=== PATIENT | female | born 1935 | race Caucasian/White ===

== ENCOUNTER → 2016-08-15 | Outpatient (CLI) | payer OTHER ==
[~2016-08-15] VITALS: Ht 152.4 cm; Wt 77.1 kg
[~2016-08-15] MED LIST: ADULT LOW DOSE81 MG PO; ADVAIR 100-501 EACH IH; ADVAIR HFA 230M12 GM INH; ADVAIR HFA115 MCG/21 INH; ADVAIRDISKUS; AMLODIPINE BESYL5 MG PO; ASPIRIN325 PO; ASTELIN30 ML; ASTELIN30 ML NS; ASTEPRO205.5 MCG/ INH; AVAPRO 150 MG150 M1 PO; AVAPRO 150 MG150 MG PO; B-121000 MCG PO; BENICAR PO; BENICAR20 MG; BENICAR20 MG PO; CALCIUM; CALCIUM +D & M1 EAC1 PO; CALCIUM 500 +1 EAC5 PO; CALCIUM CITRAT1 EA14 PO; CARAFATE 1 GM TA1 G1 PO; CITRATE OF MAG296 ML PO; CO-ENZYME Q-1010 MG PO; CONJUGATED ESTROGENS; DYMISTA NASAL S23 GM; FISH OIL 1,0001 EAC5 PO; FISH OIL 1,001000 M2 PO; FISH OIL SOFTG1 EACH PO; FISHOIL PO; IBUPROFEN 400400 M2 PO; INDAPAMIDE1.25 MG PO; INDAPAMIDE2.5 MG PO; K-DUR 20 MEQ T20 MEQ PO; K-DUR10 ME1 PO; KLOR-CON 1010 MEQ PO; LEVAQUIN 500 M500 M2 PO; LIDODERM 5%1 PATC1 TRANSDERM; LOPRESSOR 12.12.5 MG PO; LOPRESSOR PO; MICRO-K 10 MEQ10 MEQ OR; MULTIPLE VITAM1 EAC3 PO; MULTIVITAMINS; MULTIVITAMINS1 EAC7 PO; NASACORT10.8 ML INH; NASACORT10.8 ML NS; NASONEX17 GM; NASONEX17 GM NS; NEXIUM 40 MG CA40 M1 PO; NEXIUM PO; NEXIUM20 M1 PO; NEXIUM40 MG PO; NORCO 5-325 TA1 EACH PO; OXYBUTYNIN 5 MG5 M1 PO; PHENERGAN 25 MG25 M1 PO; PLAVIX 75 MG TA75 M1 PO; PREMARIN0.625 MG VAG; PREMARIN42.5 GM VG; PRILOSEC 20 MG20 MG PO; PROAIR HFA8.5 GM INH; PROLIA60 MG/1 ML SQ; PROMETHEGAN25 MG RC; PROTONIX40 M1 PO; REGLAN 5 MG TAB5 M1 PO; SERTRALINE HCL25 M1; SERTRALINE HCL25 M1 PO; SIMVASTATIN20 MG PO; SINGULAIR 10 MG10 M1 PO; TOPROL XL25 MG PO; VITAMIN B-12100 MC1 PO; VITAMIN B-121000 MCG PO; VITAMIN B12 5500 MC1 PO; VITAMIN D1000 UNI1 PO; WELLBUTRIN SR150 MG PO; XANAX 0.25 MG0.25 MG PO; ZOCOR 20 MG TAB20 M1; ZOCOR20 MG PO; ZOFRAN ODT4 MG PO; ZOFRAN4 MG PO; [UNRECOGNIZED DRUG - OTHER]
--- NOTE | ~2016-08-15 | P ---
[facility] [place] [address] PROCEDURE REPORT Name: REJI MARVIN DHAVAL Room #: REG Patrick Varela.#: [id number] Admission: 08/15/16 Attend Phys: Zeke Wade MD Discharge: Date of : 34 Report #: [id number] THIS REPORT FOR: //name// CC: Zeke Clay MD DATE OF SERVICE: 08/15/2016 BRIEF HISTORY: The patient is an 81-year-old woman who was admitted to [facility] recently with diarrhea. A CT revealed a colitis involving the sigmoid colon. She was treated with several course of antibiotics as an outpatient and continued to have diarrhea. She was seen in the office and plans were made for flexible sigmoidoscopy and biopsy due to CT findings and her symptoms. We discussed the role of colonoscopy. It has been a number of year since she had a colonoscopy; however, she felt she could not tolerate the prep; therefore, we agreed on a flexible sigmoidoscopy. PREOPERATIVE DIAGNOSIS: Diarrhea with abnormal sigmoid colon on CT, colitis. POSTOPERATIVE DIAGNOSES: 1. Diverticulosis coli. 2. Normal colonic mucosa with limitations of prep. MEDICATIONS: Deep sedation with propofol per anesthesia. SPECIMEN: Biopsies of sigmoid colon. ESTIMATED BLOOD LOSS: 3 mL. PROCEDURE: Flexible sigmoidoscopy with biopsy. FINDINGS: Prior to propofol sedation, procedure of flexible sigmoidoscopy was discussed with the patient as well as potential risks and its complications. She indicates she understands and desires to proceed. DESCRIPTION OF PROCEDURE: With the patient in left lateral decubitus position, digital examination was completed which revealed no abnormalities. Subsequently, the [employer] video colonoscope was introduced in the rectum, advanced under direct vision. The prep was limited. There was some solid material. We were able to work the scope around and advanced the scope to the distal descending colon at about 50 cm. At that point, the scope was slowly withdrawn and careful circumferential views were obtained. Again, the prep was limited; however, we were able to obtain some views of the mucosa which was normal. There was no evidence of colitis or ulceration. Moderate diverticular disease was seen. Multiple random biopsies were obtained. The scope was withdrawn and [facility] [address] [place] [address] PROCEDURE REPORT Name: SHAVONNEREJI ANN [facility] [id number] Admission: 08/15/16 Attend Phys: Zeke Wade MD Discharge: Date of : 34 Report #: [id number] again, there were limitations of the rectum, but the rectal mucosa could be seen was normal. Scope was withdrawn. The patient tolerated the procedure well. CONDITION OF THE PATIENT UPON DISCHARGE: Following the procedure, the patient drowsy. She will be discharged home when fully ambulatory. INSTRUCTIONS TO THE PATIENT AND FAMILY AT TIME OF DISCHARGE: We will follow up on biopsies obtained today. At this point, would treat her symptomatically. Interestingly, she had solid stools today. It is not clear why her symptoms persisted to such a degree. Again, we will follow up on biopsies and make further recommendations. She was seen on an as needed basis. <ELECTRONICALLY SIGNED> By: Zeke Wade MD 08/16/16 1615 1209 [id number] Zeke Wade MD /nt
--- NOTE | ~2016-08-15 | S ---
[facility] [place] [address] SURGICAL PATH RPT PROCEDURE Name: REJI MARVIN Room #: REG FAYE M.Valeria.#: [id number] Admission: 08/15/16 Date of : 34 Discharge: Report #: [id number] Path Case #: [id number] PATHOLOGY REPORT COLLECTION DATE: 08/15/2016 RECEIVED DATE: 08/15/2016 SUBMITTING PHYS: Dr. Zeke Wade OTHER PHYS: Dr. Minh Clay SPECIMEN(S) RECEIVED: A.Sigmoid colon * * * * * * * * * * * * FINAL DIAGNOSIS: Large intestine, sigmoid colon, endoscopic biopsy: - Non-specific changes (please see comment). - Negative for dysplasia or malignancy. COMMENT: Examination shows subtle fibrosis of the lamina propria with mild crypt architectural distortion. Active colitis, surface epithelial inflammation, crypt abscess formation, granulomata, or viral inclusions are not identified. There is no evidence of basal plasmacytosis present. Overall, findings are non-specific and may be suggestive of a resolved episode of colitis, or diverticulitis. Clinical correlation is suggested. (IUV:mgr; d/t: 08/16/16) PATHOLOGIST: Hilda Alexandra M.D. REPORT ELECTRONICALLY SIGNED BY: Hilda Alexandra M.D. DATE/TIME: 08/16/2016 16:21 * * * * * * * * * * * * GROSS PATHOLOGY: Received in formalin labeled "Reji Marvin and sigmoid colon," are 5 segments of dobson soft tissue measuring 1.8 x 0.3 x 0.2 cm in aggregate dimensions and ranging from 0.2 to 0.4 cm in maximum dimension. The specimen is submitted entirely in cassette A1. (TTL; 08/15/2016) CLINICAL HISTORY: Hx colitis, diarrhea INITIAL CPT CODE(S): A; [address] [facility] [place] [address] SURGICAL PATH RPT PROCEDURE Name: REJI MARVIN Room #: REG CLI Avery.#: [id number] Admission: 08/15/16 Date of : 34 Discharge: Report #: [id number] Path Case #: [id number] Professional services performed by [facility] at [address], [place] [address] Technical services performed by [facility] at [address] [place] [address], [facility] [address] [place] [address]. [facility] [address] [place] [address] PHONE: [phone] DIRECTOR: Ayden Hough M.D. * * * END OF REPORT * * *
== END | disposition home or self-care (01) ==
LOC: GI 09:08
DX: K57.30 Diverticulosis of large intestine without perforation or abscess without bleeding (principal); I10 Essential (primary) hypertension; J45.909 Unspecified asthma, uncomplicated; E78.00 Pure hypercholesterolemia, unspecified; K21.9 Gastro-esophageal reflux disease without esophagitis; F32.9 Major depressive disorder, single episode, unspecified; F41.9 Anxiety disorder, unspecified; Z98.42 Cataract extraction status, left eye; Z90.710 Acquired absence of both cervix and uterus; Z98.41 Cataract extraction status, right eye; Z96.1 Presence of intraocular lens; Z98.890 Other specified postprocedural states
CPT/HCPCS: 62110; 62900

== ENCOUNTER → 2021-01-25 | Outpatient (CLI) | payer OTHER ==
[~2021-01-25] MED LIST changes: +ASA81BEC PO; +ASPIR 8181 M1 PO; +CO Q-10200 MG PO; +ESTRADIOL CREAM VAG; +K-DUR10 MEQ PO; +MELATONIN5 M1 PO; +METAMUCIL POWD174 GM PO; +MULTI VITAMIN1 EACH PO; +PROBIOTIC1 EAC7 PO; +VIACTIV 650 MG1 EACH PO; +VITAMIN C1000 MG PO; +VITAMIN C250 MG PO; +VITAMIN D350 MC3 PO; +VITAMIN E400 UNIT PO; +ZELNORM6 MG PO
[2021-01-25 15:17] LABS: URINE BILIRUBIN NEGATIVE (Negative); URINE BLOOD NEGATIVE (Negative); URINE CLARITY CLEAR; URINE COLOR YELLOW; URINE GLUCOSE-RANDOM* NEGATIVE (Negative); URINE KETONES NEGATIVE (Negative); URINE LEUKOCYTES-REFLEX NEGATIVE (Negative); URINE NITRITE-REFLEX NEGATIVE (Negative); URINE PROTEIN (DIPSTICK) NEGATIVE (Negative); URINE UROBILINOGEN 0.2 E.U./dl (0.2-1.0)
[2021-01-25 15:19] LABS: HEMATOCRIT 36.1 % (37.0-47.0); MCH 31.8 pg (26.0-34.0); MCHC 33.2 g/dL (28.0-37.0); MCV 95.6 fL (80.0-100.0); RBC 3.77 mil/uL (4.20-5.00); RDW 12.7 % (10.5-14.5); WBC 6.9 thou/uL (4.0-11.0)
[2021-01-25 15:34] LABS: ALBUMIN 3.8 g/dL (3.4-5.0); CALCIUM 8.7 mg/dL (8.5-10.1); POTASSIUM 4.5 mmol/L (3.5-5.1)
[2021-01-25 15:35] LABS: INR 1.04; PROTIME 11.3 Seconds (10.5-12.1)
== END ==
LOC: PAC 11:10
PROVIDERS: ATTEND Orthopaedic Surgery Sports Medicine
DX: Z01.812 Encounter for preprocedural laboratory examination (principal); M17.12 Unilateral primary osteoarthritis, left knee; E11.9 Type 2 diabetes mellitus without complications

== ENCOUNTER → 2021-02-06 | Outpatient (CLI) | payer OTHER | LOC: LAB 11:40 | PROVIDERS: Student in an Organized Health Care Education/Training Program; ATTEND Orthopaedic Surgery Sports Medicine | DX: Z01.812 Encounter for preprocedural laboratory examination (principal); Z20.822 Contact with and (suspected) exposure to COVID-19 ==

== ENCOUNTER 2021-02-07 06:04 | Inpatient (IN) | payer OTHER ==
[~2021-02-07] VITALS: Ht 121.9 cm; Wt 50.5 kg
[2021-02-07 07:49] VITALS: BP 156/50
[2021-02-07 15:34] VITALS: BP 137/62
[2021-02-07 16:05] VITALS: BP 114/72
--- NOTE | 2021-02-07 16:15 | NUR ---
PATIENT ARRIVED TO FLOOR FROM OR AT 1450. A&OX4. DAUGHTER PRESENT. NO COMPLAINTS OF PAIN. PT AT BEDSIDE. VITAL SIGNS WITHIN NORMAL LIMITS. LEFT KNEE HAD POLAR PACK, SCDS, AND JOSE HOSE. FALL PRECAUTIONS PUT IN PLACE. PATIENT HAD EPISODE OF DIZZINESS WHEN WORKING WITH PT. BEDSIDE COMMODE USED INSTEAD OF WALKING TO RESTROOM. FOOT DROP WAS ALSO NOTICED ON PATIENTS LEFT FOOT. WILL CONTINUE TO MONITOR.
[2021-02-07 16:25] VITALS: BP 130/59
[2021-02-07 19:51] VITALS: BP 109/53
--- NOTE | 2021-02-08 02:50 | NUR ---
PT DENIED PAIN SO FAR.PT UP WITH ASSIST/GB TO BSC.PT STILL C/O DIZZINESS WHEN UP.POLAR PACK,SCD,JOSE HOSE IN PLACE.IVF INFUSING ORDERD.ALL PT NEEDS MET.PT SLEEPING ON HER BED AT THIS TIME.DRSG TO HER L KNEE C/D/I.CALL LIGHT WITHIN REACH.
[2021-02-08 04:27] VITALS: BP 134/49
--- NOTE | 2021-02-08 05:41 | O ---
[facility] [place] [address] OPERATIVE REPORT Name: REJI MARVIN Room #: 442-P ADM IN M.R.#: [id number] Admission: 02/07/21 Attend Phys: Jonh Dalal MD Discharge: Date of : 34 Report #: [id number] THIS REPORT FOR: cc: Minh Clay MD, Thomas P. MD McCabe,Jonh Holt MD ~ DATE OF SERVICE: 02/07/2021 SERVICE: Orthopedics. FACILITY: [facility]. SURGEON: Jonh Dalal MD [employer] TOP HELPER: Ana Lui NP. INDICATIONS FOR ELECTR[employer]IANS TOP HELPER: Extremities positioning, retraction, exposure, implant fixation and closure. PREOPERATIVE DIAGNOSIS: Severe left knee osteoarthritis, valgus type. POSTOPERATIVE DIAGNOSIS: Severe left knee osteoarthritis, valgus type. PROCEDURES PERFORMED: 1. Left total knee arthroplasty. 2. Robotic-assisted arthroplasty. COMPLICATIONS: None. DRAINS: None. SPECIMENS: None. ANESTHESIA: General with regional. IMPLANTS: Valentine and Nephew size 3 cobalt chrome Journey II femoral component, size 3 tibial component, 10 mm poly spacer and 29 mm patellar button. HISTORY: The patient is an 86-year-old female with a history of persistent quite severe and worsening left knee osteoarthritis, who had tried a couple years' worth of conservative treatment measures and she continued to have persistent pain despite all of these and she was interested in having definitive treatment. As a result, she had severe osteoarthritis on her x-rays with xbaj-[id number]-[id number] changes, sclerosis and osteophytes. We discussed openly that her age [age] years old was a concern for having potential complications postoperatively. I had a conversation with her primary care as well as her [facility] [address] [place] [address] OPERATIVE REPORT Name: REJI MARVIN DHAVAL Room #: 442-P ADM IN M.R.#: [id number] Admission: 02/07/21 Attend Phys: Jonh Dalal MD Discharge: Date of : 34 Report #: [id number] elder daughter on several occasions as to optimal ways to approach this in order to minimize risk of significant complication. Ultimately, she wished to move forward with definitive surgical treatment. Risks, benefits, alternatives and indications of surgery discussed with her in detail. Risks include but not limited to pain, bleeding, infection, injuring nerves or blood vessels, persistent pain despite surgical intervention, need for further surgery including revision as well as complications related to anesthesia up to and including . Despite these risks, she wished to proceed. DESCRIPTION OF PROCEDURE: After left lower extremity was correctly identified in the preoperative holding area as the operative extremity, the patient underwent regional nerve block. She was then taken to the operating room where general anesthesia was induced without complication. She was padded appropriately. Prophylactic antibiotics were administered in appropriate time. A tourniquet was applied to left leg. Left lower extremity was then prepped and draped in standard sterile fashion. Timeout procedure performed. Esmarch was used and tourniquet inflated to 250 mmHg. Standard anterior approach was performed with medial parapatellar arthrotomy and exposure was performed in standard fashion. Osteophytes were removed. The anterior horn of the medial and lateral menisci were resected. The cruciates were resected with electrocautery and synovitis was resected as well. The checkpoints and tibial and femoral half pins were then placed and the OTI [employer] robotic system was used to obtain baseline depth and then based on the templating, we established a surgical plan. The distal cut was made with the Navio bur and then the 5-in-1 cutting block was used to prepare the femur to appropriate size accounting for her smaller lateral femoral condyle and the wear pattern that was favoring the lateral side with the valgus deformity. The tibial cut was then made utilizing the Navio for assistance in the position and orientation and then the tibial side after we used the spacer blocks to confirm the balance medial and lateral flexion and extension gaps. The knee was placed into extension. Prior to placement of the trials, lamina medication administration professional was used and then first portion of the periarticular injection cocktail was injected into the posterior capsule for postoperative pain control and then the trials were placed, first with the tibia and then with the femoral component and then a box cut was made. Then we assessed the balancing with a 10 mm trial, I was happy with the appearance. We used the Navio then to assess the balancing and I was happy again with the balancing. We had achieved full extension and had approximately 2 mm of mobility, which I think is ideal for this patient in her situation. She has baseline general laxity and has excellent knee flexion again. The final implants were selected. The trials were removed. Final preparation of the bone was performed. The wound was copiously irrigated and then the final implants were cemented into place. Note that the patella then prepared for a 29 mm patellar inset button. Knee was placed into extension. Excess cement was removed. While the cement cured, the rest of the periarticular injection was injected into the soft tissues and then tourniquet was let down. Hemostasis was [facility] [address] [place] [address] OPERATIVE REPORT Name: REJI MARVIN Room #: 442-P ADM IN M.R.#: [id number] Admission: 02/07/21 Attend Phys: Jonh Dalal MD Discharge: Date of : 34 Report #: [id number] achieved. During the excision of the tibial component, there was noted be a small partial thickness tear in the popliteus and so an 0 Vicryl suture was used to repair this in a [id number] fashion with successful repair achieved. The balancing was appropriate with the trial in place and we selected the final 10 mm trial. The wound was irrigated once more and then the final trial was snapped into position. I was happy with the balancing in flexion and extension and she achieved full extension. The arthrotomy was then closed with 0 Vicryl suture in [id number] fashion and gravity flexion test was performed. The arthrotomy was closed over a gram of vancomycin powder. The skin was then closed with 2-0 Vicryl followed by running subcuticular 3-0 Monocryl. Dermabond and sterile dressing was applied followed by a thigh-high compression stocking and a PolarCare device. The patient was awakened from anesthesia and taken to recovery room in stable condition, no complications. All counts were recorded as correct. <ELECTRONICALLY SIGNED> By: Jonh Dalal MD 02/08/21 0541 0927 1010 Jonh Dalal MD /nt
[2021-02-08 09:00] VITALS: BP 136/80
--- NOTE | 2021-02-08 12:26 | NUR ---
A/O X 4. ROOM AIR. STAND BY ASSIST WITH WALKER. RIGHT HAND IV SALINE LOCKED. CONT OF B/B USES BEDSIDE COMMODE. DAUGHTER MORRIS AT BEDSIDE. POLAR PACK TO LEFT KNEE, DUC DRESSING TO LEFT KNEE. PAIN 08/02. WORKED WITH PT TODAY AND WALKED IN THE HALLWAY. SLIGHT DIZZINESS NOTED WHEN STANDING.
--- NOTE | 2021-02-08 13:27 | NUR ---
ASSESSMENT: CM REVIEWED CHART AND SPOKE WITH PATIENT AT THE BEDSIDE. PT IS S/P LEFT TKA. PT REPORTS THAT SHE LIVES IN A HOUSE ALONE BUT HAS PLANS OF STAYING AT HER DAUGHTERS HOME AT DISCHARGE. PT REPORTS HER DAUGHTERS HOME HAS TWO SMALL STEPS TO ENTER WITH A HANDRAIL. PT REPORTS SHE WILL HAVE NO STEPS ONCE INSIDE. PT STATES SHE HAS A CANE THAT SHE USES OUT IN THE COMMUNITY BUT ALSO STATES SHE HAS A WALKER AT HOME. PT REPORTS THAT SHE HAS A DAIRY INSPECTOR AT HOME TO ASSIST AND HAS BORROWED A COMMODE/STOOL RISER FROM NEIGHBOR. PT STATES THAT HER DAUGHTER HAS A WALK IN SHOWER. CM DISCUSSSED [facility] SNF, ACUTE REHAB, HOME HEALTH. PT STATES SHE ACTUALLY DID VERY WELL WITH THERAPY AND SHE HAS OUTPATIENT ALREADY ARRANGED WITH [facility] ON FRIDAY AND IS HOPING TO DO THAT. CM WILL CONTINUE TO FOLLOW TO SEE HOW PATIENT PROGRESSES WITH THERAPY.
[2021-02-08 13:54] LABS: HEMATOCRIT 26.3 % (37.0-47.0); HEMOGLOBIN 8.8 gm/dL (12.0-15.0); MCH 31.5 pg (26.0-34.0); MCHC 33.4 g/dL (28.0-37.0); MCV 94.4 fL (80.0-100.0); RBC 2.78 mil/uL (4.20-5.00); RDW 12.7 % (10.5-14.5); WBC 12.4 thou/uL (4.0-11.0)
[2021-02-08 14:06] LABS: CALCIUM 7.6 mg/dL (8.5-10.1)
[2021-02-08 15:07] LABS: FOLIC ACID 50.3 ng/mL (8.6-58.9)
[2021-02-08 17:30] VITALS: BP 130/59
[2021-02-08 19:31] VITALS: BP 124/51
--- NOTE | 2021-02-09 00:35 | NUR ---
ASSUMED PT CARE AT 1900.PT DOING WELL SO FAR.MORE STABLE WHEN UP ON HER FEET.MELATONIN GIVEN PER PT'S REQUEST.DRSG TO HER L KNEE C/D/I WITH POLAR PACK AND SCD IN PLACE.PT SLEPING ON HER BED AT THIS TIME.CALL LIGHT WITHIN REACH.
[2021-02-09 05:38] LABS: ABSOLUTE NEUTROPHILS 4.9 thou/uL (1.4-8.2); BASOPHILS 0.6 % (0.0-2.0); EOSINOPHILS 0.7 % (0.0-3.0); HEMOGLOBIN 8.5 gm/dL (12.0-15.0); LYMPHOCYTES 22.1 % (24.0-44.0); MCH 32.1 pg (26.0-34.0); MCHC 34.1 g/dL (28.0-37.0); MONOCYTES 15.5 % (1.0-8.0); PLATELET COUNT 130 thou/uL (150-400); POLYS 61.1 % (36.0-66.0); RBC 2.66 mil/uL (4.20-5.00); RDW 12.7 % (10.5-14.5)
[2021-02-09 06:29] LABS: CALCIUM 7.6 mg/dL (8.5-10.1); CREATININE 0.9 mg/dL (0.6-1.0); MAGNESIUM 1.2 mg/dL (1.8-2.4); POTASSIUM 4.5 mmol/L (3.5-5.1)
[2021-02-09 07:22] VITALS: BP 117/62
--- NOTE | 2021-02-09 10:39 | NUR ---
A/O X 4. ROOM AIR. RIGHT HAND IV-DRESSING DRY, CLEAN, INTACT. STAND BY ASSIST WITH TRANSFERS, USES WALKER AND BEDSIDE COMMODE. POLAR PACK TO LEFT KNEE. PATIENT STATES THE POLAR PACK IS HELPING. MAG 1.2. IV MAG GIVEN.
[2021-02-09 15:14] VITALS: BP 117/62
--- NOTE | 2021-02-09 15:14 | NUR ---
ON-GOING ASSESSMENT: CM REVIEWED CHART. PT IS DOING WELL WITH THERAPIES BUT HAVING SOME NAUSEA TODAY. PLANS ARE FOR PATIENT TO DISCHARGE HOME TO HER DAUGHTERS HOUSE AND LIKELY HAVE HOME HEALTH THEN PROGRESS TO OUTPATIENT THERAPY. PT HAS NO PREFERENCE OF COMPANY. REFERRAL SENT TO [facility] WHO REPORTS THEY CAN ACCEPT HER AND CM NOTIFIED THEM PT IS STAYING AT HER DAUGHTER CONNIES HOME WITH ADDRESS [address] [place] [address] [place] [address]. IF PATIENT IS STABLE TO DISCHARGE HOME OVER THE WEEKEND FAX DISCHARGE ORDER TO [facility] FAX [phone]. (CM NOTIFIED LIASON OF LIKELY DISCHARGE THIS WEEKEND). PT ALREADY HAS A WALKER AT HOME.
[2021-02-09 20:47] VITALS: BP 129/53
--- NOTE | 2021-02-10 03:26 | NUR ---
ASSUMED CARE OF PT AT 1900. BEDSIDE REPORT RECIEVED. BELIA ASSESSMENT COMPLETE. MEDS GIVEN ORDERED PER JUL. PRN PAIN PILL GIVEN FOR 6/10 L KNEE PAIN. L DUC DRESSING CDI. POLAR PACK TO LLE. R HAND PIV CDI, PATENT. PT UP TO BSC C SBA, GAIT BELT, WALKER. ASSISTED PT TO PLUG IN PHONE TO CHARGE. PROVIDED EDUCATION ON HEALING PROCESS, PT VERBALIZED UNDERSTANDING. DENIES ANY OTHER NEEDS AT THIS TIME. CALL LIGHT IN REACH
[2021-02-10 06:27] LABS: HEMATOCRIT 22.8 % (37.0-47.0); HEMOGLOBIN 7.5 gm/dL (12.0-15.0); MCH 31.3 pg (26.0-34.0); MCHC 33.1 g/dL (28.0-37.0); MCV 94.6 fL (80.0-100.0); RBC 2.41 mil/uL (4.20-5.00); RDW 12.9 % (10.5-14.5); WBC 6.6 thou/uL (4.0-11.0)
[2021-02-10 06:47] LABS: ALBUMIN 3.1 g/dL (3.4-5.0); CALCIUM 7.2 mg/dL (8.5-10.1); CREATININE 0.9 mg/dL (0.6-1.0); MAGNESIUM 1.9 mg/dL (1.8-2.4); PHOSPHORUS 3.5 mg/dL (2.5-4.9); POTASSIUM 4.6 mmol/L (3.5-5.1)
[2021-02-10 07:11] VITALS: BP 121/47
[2021-02-10 15:26] VITALS: BP 124/54
--- NOTE | 2021-02-10 17:20 | NUR ---
PT ASSESSED AT START OF SHIFT. DOING WELL W/ MOVEMENT AND THERAPY. TRANSFERRING W/ STANDBY ASSIST. EATING AND DRINKING WELL. PAIN CONTROLLED WELL. PLAN FOR DC TO DAUGHTER'S HOUSE TOMORROW IF HGB STABILIZED.
[2021-02-10 20:45] VITALS: BP 124/56
--- NOTE | 2021-02-11 02:01 | NUR ---
TREY CARE OF PT AT 1900. BEDSIDE REPORT RECIEVED. BELIA ASSESSMENT COMPLETE. PT UP IN CHAIR, ASSISTED PT BACK TO BED SBA C WALKER AND GAIT BELT. C/O 6/10 LEFT KNEE PAIN. PRN MEDICATION ADMINISTERD C OTHER SCHEDULED MEDS. POLAR PACK TO LLE REFILELD C ICE. R HAND PIV CDI, PATENT. REFILLED ICE WATER. REPOSITIONED FOR COMFORT. PT DENIES ANY OTHER NEEDS AT THIS TIME. CALL LIGHT IN REACH.
--- NOTE | 2021-02-11 03:27 | NUR ---
PT C/O SHAKINESS, DIZZINESS, AND FEELING "HEAVY". VSS. BS 113. PT SCHEDULED TO HAVE LABS DRAWN IN AM TO RECHECK LOW HEMOGLOBIN LEVEL. NOTIFIED LASHAWN MURGUIA NP. NO NEW ORDERS AT THIS TIME, WAITING FOR LABS TO BE DRAWN AND RESULTS TO COME BACK. PT EDUCATION PROVIDED. CALL LIGHT IN REACH
[2021-02-11 07:03] LABS: HEMATOCRIT 22.3 % (37.0-47.0); HEMOGLOBIN 7.6 gm/dL (12.0-15.0); MCH 32.5 pg (26.0-34.0); MCHC 34.3 g/dL (28.0-37.0); MCV 94.8 fL (80.0-100.0); RBC 2.36 mil/uL (4.20-5.00); RDW 12.7 % (10.5-14.5); WBC 7.5 thou/uL (4.0-11.0)
[2021-02-11 08:17] VITALS: BP 117/43
[2021-02-11] MEDS ORDERED: FERREX 150 PLU1 EAC1 PO (09:03)
[2021-02-11] MEDS ORDERED: OXYCODONE HCL 55 MG PO (09:04)
--- NOTE | 2021-02-11 11:29 | NUR ---
A/O X 4. ROOM AIR. STAND BY ASSIST. USES BEDSIDE COMMODE. HAS KERLEX AND JOSE MARIA WRAP TO LEFT KNEE, NO DRAINAGE NOTED ON DRESSING. RIGHT HAND IV FLUSHES GOOD, DRY HAS SMALL AMOUNT OF BLOOD, POLAR TO LEFT KNEE. THIGH HIGH TEDS ON. HAS A LITTLE BOUGHT OF NAUSEA AROUND 1030, ZOFRAN GIVEN. DAUGHTER MORRIS AT BEDSIDE. PATIENT STILL TRYING TO CHOOSE IF SHE SHOULD GO TO REHAB OR HOME WITH HER DAUGHTER.
[2021-02-11 15:14] VITALS: BP 121/42
--- NOTE | 2021-02-12 11:44 | NUR ---
CM FOLLOWED UP WITH PATIENTS DAUGHTER MORRIS ON Friday02/12/21 IT APPEARED PT MAY HAVE LEFT ON 02/11/21. LEXIE SPOKE WITH PTS DAUGHTER MORRIS WHO REPORTS SHE ENDED UP TAKING PATIENT HOME AND THEY WERE WANTING HH ARRANGED WITH [facility]. LEXIE NOTIFIED [employer] SALES REPRESENTATIVE TO PLEASE PUT IN ORDERS FOR HOME HEALTH SO [facility] CAN GET THOSE TODAY. [employer] SALES REPRESENTATIVE STATING SHE WILL DIRECTLY SEND THE HH ORDERS FROM THEIR OFFICE AND NOTIFIED HER THAT [facility] WOULD BE ANTICIPATING THEM. LEXIE NOTIFIED LIASON WITH [facility]. CASE CLOSED.
== END 2021-02-11 18:44 | disposition home health service (06) | DRG 470 ==
LOC: PRE → TBA 06:04 → 4S 06:04 → PRE 12:54 → 4S 14:42 → PRE 16:16 → 4S 02-11 18:44
PROVIDERS: Hospitalist; Nurse Practitioner; ADMIT Orthopaedic Surgery Sports Medicine; ATTEND Orthopaedic Surgery Sports Medicine
PROC: 8E0Y0CZ Robotic Assisted Procedure of Lower Extremity, Open Approach (ICD-10-PCS; principal; 2021-02-07)
PROC: 0SRD069 Replacement of Left Knee Joint with Oxidized Zirconium on Polyethylene Synthetic Substitute, Cemented, Open Approach (ICD-10-PCS; principal; 2021-02-07)
DX: M17.12 Unilateral primary osteoarthritis, left knee (principal); D62 Acute posthemorrhagic anemia; R11.0 Nausea; D69.6 Thrombocytopenia, unspecified; E78.5 Hyperlipidemia, unspecified; E83.42 Hypomagnesemia; M21.062 Valgus deformity, not elsewhere classified, left knee; I10 Essential (primary) hypertension; F41.9 Anxiety disorder, unspecified; J45.909 Unspecified asthma, uncomplicated; F32.9 Major depressive disorder, single episode, unspecified; K21.9 Gastro-esophageal reflux disease without esophagitis; Z88.6 Allergy status to analgesic agent; Z88.3 Allergy status to other anti-infective agents; Z88.5 Allergy status to narcotic agent; Z88.0 Allergy status to penicillin; Z88.8 Allergy status to other drugs, medicaments and biological substances; Z90.710 Acquired absence of both cervix and uterus; Z98.49 Cataract extraction status, unspecified eye
CPT/HCPCS: 10102; 50010; 50101; 50415; 50954; 51130; 51225; 51320; 52001; 52282; 53000; 53078; 54118; 56527; 56528; 57095; 57103; 57110; 57127; 57180; 58239; 62110; 62900; 64042; 70005